=== PATIENT | male | born 1930 | race Caucasian/White ===

== ENCOUNTER 2017-07-27 13:55 | Inpatient (IN) | payer OTHER ==
[~2017-07-27] VITALS: Ht 185.4 cm; Wt 113.2 kg
[~2017-07-27 13:55] MED LIST: ACET325 PO; ACET650SUP PR; ALBU.083IS IH; ALBU3IS INH; ALBU90OI INH; AMLO10 PO; AMLO5 PO; AZIT250 PO; Ativan0.5 MG; CEFTRIAXONE IV; CEFUROXIME PO; CEPH500 PO; CETI5 PO; CITA10S PO; CITA20 PO; CLON1 PO; Celexa40 MG PO; DICL75ER PO; DONE10 PO; ENOX40I SUBQ; FERR325 PO; FURO20 PO; FURO40 PO; Furosemide40 MG PO; GLYB2.5 PO; HYDACE5 PO; Keflex500 MG PO; LOPE2C PO; LORA1 PO; LOSA50 PO; MEMA5TAB PO; METO25ER PO; METO50 PO; METPRE4DP PO; MULVITMIND PO; Micro-K10 MEQ PO; NAMENDA XR28 MG PO; NYST100P TOP; Norco 5-325 Ta1 EACH PO; OLAN2.5 PO; OXYC5 PO; PANT40 PO; PIOG30 PO; POLY17UD PO; POTCHL10ER PO; POTCHL20ER PO; Prevalite Pac4 G/PKT PO; QUET25 PO; Questran4 GM; Questran4 GM PO; RIFA300 PO; SULTRIDS PO; TELM40 PO; TRIA80TC TOP; VANCOMYCIN IV; WARF5 PO; XARELTO20 MG PO; ZOLP10 PO; [UNRECOGNIZED DRUG - OTHER]
[2017-07-27] MEDS ORDERED: LORA1 PO (14:25)
[2017-07-27] MEDS ORDERED: Ferrous Sulfat325 MG PO (14:27)
[2017-07-27] MEDS ORDERED: VITAMIN B122500 MC1 PO (14:29)
[2017-07-27 15:27] LABS: BASOPHILS ABSOLUTE AUTO 0.03 K/mm3 (0.00-0.23); BASOPHILS PERCENT AUTO 1 % (0-2); EOSINOPHILS ABSOLUTE AUTO 0.22 K/mm3 (0.00-0.68); EOSINOPHILS PERCENT AUTO 4 % (0-6); Hematocrit 40.3 % (37.0-53.0); Hemoglobin 12.8 g/dL (13.5-17.5); IMMATURE GRAN ABSOLUTE AUTO 0.01 K/mm3 (0.00-0.10); IMMATURE GRAN PERCENT AUTO 0 % (0-1); LYMPHOCYTES ABSOLUTE AUTO 0.75 K/mm3 (0.84-5.20); LYMPHOCYTES PERCENT AUTO 13 % (21-46); MONOCYTES ABSOLUTE AUTO 0.53 K/mm3 (0.16-1.47); MONOCYTES PERCENT AUTO 9 % (4-13); Mean Corpuscular HGB 29.1 pg (26.0-34.0); Mean Corpuscular HGB Conc 31.8 g/dL (31.5-36.5); Mean Corpuscular Volume 92 fL (80-100); NEUTROPHILS ABSOLUTE AUTO 4.37 K/mm3 (1.96-9.15); NEUTROPHILS PERCENT AUTO 74 % (41-73); Platelet Count 181 K/mm3 (150-400); RDW Coefficient Variation 14.5 % (11.7-14.2); RDW Standard Deviation 48.8 fL (35.1-46.3); White Blood Cell Count 5.91 K/mm3 (4.00-11.30)
[2017-07-27 15:35] LABS: Source, Urine Catheter
[2017-07-27 15:49] LABS: Albumin, Blood 3.1 g/dL (3.4-5.0); Albumin/Globulin Ratio 0.9 (0.8-1.8); Bilirubin, Total 0.5 mg/dL (0.1-1.0); Bun/Creatinine Ratio 15.9 (12.0-20.0); Calcium, Blood 9.4 mg/dL (8.5-10.1); Creatinine, Blood 1.45 mg/dL (0.60-1.20); Globulin, Blood 3.3 g/dL (2.2-4.0); Potassium, Blood 4.4 mmol/L (3.5-5.5); Total Protein, Blood 6.4 g/dL (6.4-8.2)
[2017-07-27 15:51] LABS: Appearance, Urine Clear (Clear); Bilirubin, Urine Neg (Neg); Blood, Urine Neg (Neg); Color, Urine Yellow (P-Yellow); Glucose Qualitative, Urine Neg (Neg); Ketones, Urine Neg (Neg); Leukocyte Esterase, Urine 1+ (Neg); Nitrite, Urine Neg (Neg); Protein, Urine Neg (Neg); Urobilinogen, Urine NORM (Normal)
[2017-07-27 16:08] LABS: Bacteria Rare /hpf; Red Blood Cells, Urine 0-2 /hpf (0-2); Squamous Epithelial Cells Rare /hpf (Few)
[2017-07-28 05:15] LABS: BASOPHILS ABSOLUTE AUTO 0.04 K/mm3 (0.00-0.23); BASOPHILS PERCENT AUTO 1 % (0-2); EOSINOPHILS ABSOLUTE AUTO 0.19 K/mm3 (0.00-0.68); EOSINOPHILS PERCENT AUTO 4 % (0-6); Hematocrit 38.8 % (37.0-53.0); Hemoglobin 12.3 g/dL (13.5-17.5); IMMATURE GRAN ABSOLUTE AUTO 0.01 K/mm3 (0.00-0.10); IMMATURE GRAN PERCENT AUTO 0 % (0-1); LYMPHOCYTES ABSOLUTE AUTO 0.98 K/mm3 (0.84-5.20); LYMPHOCYTES PERCENT AUTO 22 % (21-46); MONOCYTES ABSOLUTE AUTO 0.47 K/mm3 (0.16-1.47); MONOCYTES PERCENT AUTO 11 % (4-13); Mean Corpuscular HGB 28.6 pg (26.0-34.0); Mean Corpuscular HGB Conc 31.7 g/dL (31.5-36.5); Mean Corpuscular Volume 90 fL (80-100); Mean Platelet Volume 10.6 fL (9.1-12.4); NEUTROPHILS ABSOLUTE AUTO 2.74 K/mm3 (1.96-9.15); NEUTROPHILS PERCENT AUTO 62 % (41-73); Platelet Count 164 K/mm3 (150-400); RDW Coefficient Variation 14.3 % (11.7-14.2); RDW Standard Deviation 47.2 fL (35.1-46.3); White Blood Cell Count 4.43 K/mm3 (4.00-11.30)
[2017-07-28 05:48] LABS: Albumin, Blood 2.9 g/dL (3.4-5.0); Albumin/Globulin Ratio 0.9 (0.8-1.8); Bilirubin, Total 0.4 mg/dL (0.1-1.0); Bun/Creatinine Ratio 17.3 (12.0-20.0); Calcium, Blood 9.3 mg/dL (8.5-10.1); Creatinine, Blood 1.39 mg/dL (0.60-1.20); Globulin, Blood 3.3 g/dL (2.2-4.0); Potassium, Blood 4.2 mmol/L (3.5-5.5); Total Protein, Blood 6.2 g/dL (6.4-8.2)
[2017-07-29] MEDS ORDERED: AZIT500 PO (11:41)
[2017-07-29] MEDS ORDERED: Prinivil10 MG PO (11:41)
== END 2017-07-29 13:24 | disposition home or self-care (01) | DRG 194 ==
LOC: ER 13:55 → MEDS 17:00 → ENPENDDIS 07-29 10:00 → MEDS 07-29 13:24
PROVIDERS: Internal Medicine
DX: J18.9 Pneumonia, unspecified organism (principal); E87.0 Hyperosmolality and hypernatremia; I13.0 Hypertensive heart and chronic kidney disease with heart failure and stage 1 through stage 4 chronic kidney disease, or unspecified chronic kidney disease; F03.90 Unspecified dementia, unspecified severity, without behavioral disturbance, psychotic disturbance, mood disturbance, and anxiety; E11.22 Type 2 diabetes mellitus with diabetic chronic kidney disease; N18.3 Chronic kidney disease, stage 3 (moderate); I50.9 Heart failure, unspecified; E66.9 Obesity, unspecified; Z66 Do not resuscitate; Z68.34 Body mass index [BMI] 34.0-34.9, adult; Z85.46 Personal history of malignant neoplasm of prostate; Z79.84 Long term (current) use of oral hypoglycemic drugs; Z87.891 Personal history of nicotine dependence; Z79.891 Long term (current) use of opiate analgesic; Z79.899 Other long term (current) drug therapy
CPT/HCPCS: 36415; 71046; 80053; 81001; 83605; 83880; 84145; 85025; 87086; 93005; 93010; 93306; 96365; 96375; 99285; J0456; J0696; J1650; J7050

== ENCOUNTER 2017-11-18 18:11 | Emergency (ER) | payer OTHER ==
[~2017-11-18] VITALS: Ht 185.4 cm; Wt 113.4 kg
[~2017-11-18 18:11] MED LIST changes: +AZIT500 PO; +Ferrous Sulfat325 MG PO; +Prinivil10 MG PO; +VITAMIN B122500 MC1 PO
[2017-11-18] MEDS ORDERED: PIOG30 PO (18:40)
[2017-11-18 18:52] LABS: BASOPHILS ABSOLUTE AUTO 0.03 K/mm3 (0.00-0.23); BASOPHILS PERCENT AUTO 0 % (0-2); EOSINOPHILS ABSOLUTE AUTO 0.36 K/mm3 (0.00-0.68); EOSINOPHILS PERCENT AUTO 4 % (0-6); Hematocrit 36.7 % (37.0-53.0); Hemoglobin 11.6 g/dL (13.5-17.5); IMMATURE GRAN ABSOLUTE AUTO 0.02 K/mm3 (0.00-0.10); IMMATURE GRAN PERCENT AUTO 0 % (0-1); LYMPHOCYTES ABSOLUTE AUTO 0.83 K/mm3 (0.84-5.20); LYMPHOCYTES PERCENT AUTO 9 % (21-46); MONOCYTES ABSOLUTE AUTO 0.68 K/mm3 (0.16-1.47); MONOCYTES PERCENT AUTO 8 % (4-13); Mean Corpuscular HGB 28.9 pg (26.0-34.0); Mean Corpuscular HGB Conc 31.6 g/dL (31.5-36.5); Mean Corpuscular Volume 91 fL (80-100); Mean Platelet Volume 10.6 fL (9.1-12.4); NEUTROPHILS ABSOLUTE AUTO 6.98 K/mm3 (1.96-9.15); NEUTROPHILS PERCENT AUTO 79 % (41-73); Platelet Count 204 K/mm3 (150-400); RDW Coefficient Variation 14.9 % (11.7-14.2); RDW Standard Deviation 50.1 fL (35.1-46.3); Red Blood Cell Count 4.02 M/mm3 (4.30-5.90)
[2017-11-18 19:13] LABS: Alanine Aminotransfer (ALT/SGP 10 U/L (12-78); Albumin, Blood 2.8 g/dL (3.4-5.0); Albumin/Globulin Ratio 0.7 (0.8-1.8); Alk Phos 68 U/L (50-136); Anion Gap 7 mmol/L (6-16); Aspartate Aminotrans (AST/SGOT 12 U/L (12-37); Bilirubin, Total 0.5 mg/dL (0.1-1.0); Blood Urea Nitrogen 37 mg/dL (8-24); Bun/Creatinine Ratio 24.8 (12.0-20.0); CO2, Blood 25 mmol/L (21-32); Calcium, Blood 9.2 mg/dL (8.5-10.1); Chloride, Blood 108 mmol/L (98-108); Creatinine, Blood 1.49 mg/dL (0.60-1.20); Globulin, Blood 4.2 g/dL (2.2-4.0); Glomerular Filtration Rate 48 (60-); Glucose, Blood 124 mg/dL (70-99); Potassium, Blood 4.4 mmol/L (3.5-5.5); Sodium, Blood 140 mmol/L (136-145); Troponin I <0.015 ng/mL (0.000-0.040)
[2017-11-18 20:02] LABS: Source, Urine Clean Catch
[2017-11-18 20:15] LABS: Bilirubin, Urine Neg (Neg); Blood, Urine Neg (Neg); Glucose Qualitative, Urine Neg (Neg); Ketones, Urine 1+ (Neg); Leukocyte Esterase, Urine 1+ (Neg); Nitrite, Urine Neg (Neg); Protein, Urine 1+ (Neg); Specific Gravity, Urine 1.015 (1.003-1.022); Urobilinogen, Urine NORM (Normal)
[2017-11-18 20:27] LABS: Appearance, Urine Clear (Clear); Color, Urine Yellow (P-Yellow)
[2017-11-18 20:28] LABS: Amorphous Light (0-Heavy); Bacteria Rare /hpf; Red Blood Cells, Urine 0-2 /hpf (0-2); Squamous Epithelial Cells Rare /hpf (Few)
[2017-11-18] MEDS ORDERED: LEVO750 PO (20:35)
== END 2017-11-18 20:53 | disposition home or self-care (01) ==
LOC: ER 18:11
PROVIDERS: Internal Medicine
DX: J18.9 Pneumonia, unspecified organism (principal); Z88.5 Allergy status to narcotic agent; Z79.899 Other long term (current) drug therapy; E11.9 Type 2 diabetes mellitus without complications; I10 Essential (primary) hypertension; Z87.891 Personal history of nicotine dependence; Z85.46 Personal history of malignant neoplasm of prostate
CPT/HCPCS: 36415; 51701; 71046; 73502; 80053; 81001; 84484; 85025; 87086; 90471; 90714; 93005; 93010; 94640; 99284-25

== ENCOUNTER 2018-03-08 20:17 | Emergency (ER) | payer OTHER ==
[~2018-03-08] VITALS: Ht 180.3 cm; Wt 99.8 kg
[~2018-03-08 20:17] MED LIST changes: +LEVO750 PO
== END 2018-03-08 21:49 | disposition home or self-care (01) ==
LOC: ER 20:17
DX: M25.552 Pain in left hip (principal); W17.89XA Other fall from one level to another, initial encounter; Z88.5 Allergy status to narcotic agent; Z79.899 Other long term (current) drug therapy; I13.0 Hypertensive heart and chronic kidney disease with heart failure and stage 1 through stage 4 chronic kidney disease, or unspecified chronic kidney disease; I50.9 Heart failure, unspecified; N18.9 Chronic kidney disease, unspecified; E11.22 Type 2 diabetes mellitus with diabetic chronic kidney disease; Z87.891 Personal history of nicotine dependence; Z85.46 Personal history of malignant neoplasm of prostate
CPT/HCPCS: 73502; 99283-25

== ENCOUNTER 2018-05-05 17:52 | Inpatient (IN) | payer OTHER ==
[~2018-05-05] VITALS: Ht 188 cm; Wt 115.7 kg
[2018-05-05 18:17] LABS: Hematocrit 41.8 % (37.0-53.0); Hemoglobin 13.1 g/dL (13.5-17.5); Mean Corpuscular HGB 28.5 pg (26.0-34.0); Mean Corpuscular HGB Conc 31.3 g/dL (31.5-36.5); Mean Corpuscular Volume 91 fL (80-100); Mean Platelet Volume 12.3 fL (9.1-12.4); Platelet Count 150 K/mm3 (150-400); RDW Coefficient Variation 14.7 % (11.7-14.2); RDW Standard Deviation 49.3 fL (35.1-46.3); White Blood Cell Count 11.29 K/mm3 (4.00-11.30)
[2018-05-05] MEDS ORDERED: ASPI325EC PO (18:17)
[2018-05-05 18:22] LABS: Bicarbonate Venous 20.8 mmol/L (24.0-30.0); PCO2 Venous 45.2 mmHg (38-42); PO2 Venous 53.5 mmHg (38-42)
[2018-05-05 18:34] LABS: Alanine Aminotransfer (ALT/SGP 19 U/L (12-78); Albumin, Blood 2.5 g/dL (3.4-5.0); Albumin/Globulin Ratio 0.6 (0.8-1.8); Alk Phos 106 U/L (50-136); Anion Gap 8 mmol/L (6-16); Aspartate Aminotrans (AST/SGOT 32 U/L (12-37); Bilirubin, Total 0.2 mg/dL (0.1-1.0); Blood Urea Nitrogen 43 mg/dL (8-24); Bun/Creatinine Ratio 31.2 (12.0-20.0); CO2, Blood 23 mmol/L (21-32); Calcium, Blood 9.2 mg/dL (8.5-10.1); Chloride, Blood 106 mmol/L (98-108); Creatinine, Blood 1.38 mg/dL (0.60-1.20); Globulin, Blood 4.5 g/dL (2.2-4.0); Glomerular Filtration Rate 52 (60-); Glucose, Blood 221 mg/dL (70-99); Sodium, Blood 137 mmol/L (136-145); Troponin I <0.015 ng/mL (0.000-0.040)
[2018-05-05 18:50] LABS: BAND PERCENT MAN 11 % (0-8); BASOPHILS PERCENT MAN 0 % (0-2); EOSINOPHILS PERCENT MAN 0 % (0-6); LYMPHOCYTES ABSOLUTE MAN 0.79 K/mm3 (0.84-5.20); LYMPHOCYTES PERCENT MAN 7 % (21-46); MONOCYTES ABSOLUTE MAN 0.45 K/mm3 (0.16-1.47); MONOCYTES PERCENT MAN 4 % (4-13); NEUTROPHILS ABSOLUTE MAN 10.04 K/mm3 (1.96-9.15); SEG NEUTROPHILS PERCENT MAN 78 % (41-73); TOTAL CELLS COUNTED 100
[2018-05-05 19:11] LABS: Influenza A Positive (NEGATIVE); Influenza B Negative (NEGATIVE)
--- NOTE | 2018-05-05 21:47 | NUR ---
PCU ADMIT PT BROUGHT TO PCU RM 05 FROM THE ER BY YOUNG @ APPROX 2120. PT A&O TO SELF AND FAMILY ONLY W/ HX ALZHEIMERS DEMENTIA. PT ORIENTED TO LOCATION, TIME, AND EVENT BY THIS NURSE. PT LUNG SOUNDS COARSE T/O. SPO2 > 90% ON BIPAP 01/17, FIO2 35%. ALLEN CATH DRAINING CLEAR YELLOW URINE. PT STATING "I NEED TO PEE. I DON'T WANT TO WET THE BED." PT REMINDED OF ALLEN CATH. PT BED/WHEELCHAIR BOUND W/ USE OF LIFT FOR TRANSER AT [facility]. +2 EDEMA TO BLE. PT IN BED W/ BLE ELEVATED ON PILLOW. BED ALARM ON. WILL CONTINUE TO MONITOR AND PROVIDE CARE.
[2018-05-05] MEDS ORDERED: Milk Of Ma400 MG/5 M PO (22:14)
[2018-05-05] MEDS ORDERED: ACET325 PO (22:16)
[2018-05-05] MEDS ORDERED: PROM25 PO (22:17)
[2018-05-06 03:27] LABS: BASOPHILS ABSOLUTE AUTO 0.02 K/mm3 (0.00-0.23); BASOPHILS PERCENT AUTO 0 % (0-2); Hematocrit 36.7 % (37.0-53.0); Hemoglobin 11.3 g/dL (13.5-17.5); LYMPHOCYTES ABSOLUTE AUTO 0.49 K/mm3 (0.84-5.20); LYMPHOCYTES PERCENT AUTO 6 % (21-46); MONOCYTES PERCENT AUTO 5 % (4-13); Mean Corpuscular HGB Conc 30.8 g/dL (31.5-36.5); Mean Corpuscular Volume 91 fL (80-100); Mean Platelet Volume 12.2 fL (9.1-12.4); Platelet Count 117 K/mm3 (150-400); RDW Coefficient Variation 14.6 % (11.7-14.2); RDW Standard Deviation 49.2 fL (35.1-46.3); Red Blood Cell Count 4.04 M/mm3 (4.30-5.90); White Blood Cell Count 8.34 K/mm3 (4.00-11.30)
[2018-05-06 03:28] LABS: EOSINOPHILS ABSOLUTE AUTO 0.01 K/mm3 (0.00-0.68); EOSINOPHILS PERCENT AUTO 0 % (0-6); IMMATURE GRAN ABSOLUTE AUTO 0.04 K/mm3 (0.00-0.10); IMMATURE GRAN PERCENT AUTO 1 % (0-1); NEUTROPHILS ABSOLUTE AUTO 7.38 K/mm3 (1.96-9.15); NEUTROPHILS PERCENT AUTO 89 % (41-73)
[2018-05-06 03:45] LABS: Albumin, Blood 2.1 g/dL (3.4-5.0); Albumin/Globulin Ratio 0.6 (0.8-1.8); Bilirubin, Total 0.3 mg/dL (0.1-1.0); Bun/Creatinine Ratio 32.8 (12.0-20.0); Calcium, Blood 8.7 mg/dL (8.5-10.1); Creatinine, Blood 1.28 mg/dL (0.60-1.20); Globulin, Blood 3.6 g/dL (2.2-4.0); Potassium, Blood 3.9 mmol/L (3.5-5.5); Total Protein, Blood 5.7 g/dL (6.4-8.2)
--- NOTE | 2018-05-06 05:40 | NUR ---
SHIFT SUMMARY PT ALERT, ORIENTED TO SELF, FAMILY, AND LOCATION. MONITOR SHOWS SB/NSR, HR 35-60. HR 30'S DURING SLEEP W/ HR INCREASE TO 50'S UPON WAKING PT. PT TOLERATING BIPAP 12/6, FIO2 35% T/O SHIFT. PT NPO EXCEPT FOR MEDS AND ICE CHIPS, ST TO EVAL PT. ALLEN CATH DRAINING CLEAR YELLOW URINE. +2 BLE, BLE ELEVATED ON PILLOW. PT REQUIRING Q2H REPOSITIONING BY 2 STAFF MEMBERS. PT IN BED W/ CALL LIGHT IN REACH. WILL CONTINUE TO MONITOR AND PROVIDE CARE UNTIL REPORT OFF TO DAY SHIFT RN.
--- NOTE | 2018-05-06 11:35 | NUR ---
SHIFT NOTE ASSUMED CARE OF PT. AT 0700. PT ON BIPAP 12/6 AT 35% MAINTAINING O2 SAT IN 90S. PT HR REMAINED IN 40'S AND 50'S, ASYMPTOMATIC. DR. NAVA IN THIS AM TO SEE PT. TYLENOL ORDER CHANGE FROM SCHEDULED TO PRN FOR PAIN, LASIX ORDERED. D/C ALLEN CATH VIA VERBAL ORDER. PT ORIENTED TO PERSON, DISORIENTED TO PLACE, TIME, EVENT BUT REORIENTS WELL. DENIES ANY PAIN, IS CALM AND COOPERATIVE BUT FORGETFUL D/T BASELINE DEMENTIA. SKIN IS COOL AND CLAMMY AND PT C/O "I'M COLD". HAVE BEEN GIVING PT WARM BLANKETS WHICH IS APPRECIATED. NO SIGNS OF DVT ASSESSED, PT DENIES PAIN IN CALF AND CHEST. SEE SHIFT ASSESSMENT FOR DETAILED ASSESSMENT. PT TOLERATING BIPAP WELL. AT APPROX 1100 O2 SATURATION DECREASED TO MID 80'S AND BIPAP FIO2 INCREASED TO 45%. PT TOLERATING NEW FIO2 WELL. DAUGHTER AT BEDSIDE WITH PALLIATIVE CARE. DISCUSSING TRANSITION TO HOME WITH HOSPICE CARE. PLAN TO REMOVE ALLEN AND REPLACE WITH CONDOM CATH D/T COMFORT.
--- NOTE | 2018-05-06 12:05 | NUR ---
SPOKE WITH DR. NAVA CONFIRMING MRSA SAMPLE W/ ABX TX. PER DR NAVA, UBTAIN NASAL MRSA SWAB DISPITE PT RECIEVING ABX AND INF CONT RECOMMENDATION TO HOLD SWAB UNTIL PT OFF ABX FOR 48 HRS.
--- NOTE | 2018-05-06 12:25 | NUR ---
Initial Visit: Consult for end of life/comfort care Pt is laying in bed with bipap. Daughter, Monse, is present. Reviewed current illness. Pt denies pain at this time, does not appear to be in any distress. Pt has past history of hypertension, DM2, CHF, dementia with behavioural elements, L BKA, R partial hip replacement. Spoke to Monse. She states that [facility] with [facility]. She has already discussed hospice with Jeanie. Jeanie tells her that the patient is showing more difficulty swallowing. His appetite has been poor. Pt has lost the ability to walk - after hip fracture and repair - he has had to remain bedbound a large percentage of time - and will get into a wheelchair with a les lift. Monse has POA and makes this decision with the help of her little sister, who is also living in the area and visits the patient on a regular basis. Monse has left the deciding of the hospice agency to Jeanie, and asks that all customer care professional questions for arrangements to hospice be directed to her also. Will remain available.
--- NOTE | 2018-05-06 17:42 | NUR ---
SHIFT SUMMARY NO ACUTE CHANGES THIS SHIFT. PT TOLERATES BIPAP WELL AT 12/6 AND 45% FIO2 MAINTINING O2 IN 90-95'S. DIET CHANGE FROM NPO TO PUREE PER ST THIS AFTERNOON. MUST HAVE SUPERVISION WITH ALL FEEDINGS. IV PATENT AND FLUSHING WELL WITH KVO AT 75 ML/HR OF NS. SCD APPLIED TO BLE. PT DENIES CALF PAIN. NO REDNESS OR SWELLING NOTED BY THIS RN. PT REMAINS BRADYCARDIC IN THE 50'S AND IS ASYMPTOMATIC. URINE OUTPUT 800 ML POST IV LASIX, PT REMAINS COURSE THROUGHOUT LUNGS. PT ALERT AND ORIENTED TO SELF AND PLACE, REDIRECTABLE AND REORIENTS WELL. PT DENIES PAIN AT THIS TIME. PT IS PLEASANT AND CALM. PLAN PER PALLIATIVE CARE IS HOME WITH HOSPICE POSSIBLY 05/07. THIS RN WILL CONTINUE TO MONITOR O2 LEVELS AND BIPAP TOLERANCE.
--- NOTE | 2018-05-06 19:13 | NUR ---
TAKEN OFF OF BIPAP FOR SNACK. TOLERATED, WELL.
[2018-05-07 04:02] LABS: BASOPHILS ABSOLUTE AUTO 0.03 K/mm3 (0.00-0.23); BASOPHILS PERCENT AUTO 1 % (0-2); EOSINOPHILS ABSOLUTE AUTO 0.05 K/mm3 (0.00-0.68); EOSINOPHILS PERCENT AUTO 1 % (0-6); Hematocrit 35.6 % (37.0-53.0); Hemoglobin 11.1 g/dL (13.5-17.5); IMMATURE GRAN ABSOLUTE AUTO 0.02 K/mm3 (0.00-0.10); IMMATURE GRAN PERCENT AUTO 0 % (0-1); LYMPHOCYTES ABSOLUTE AUTO 0.59 K/mm3 (0.84-5.20); LYMPHOCYTES PERCENT AUTO 12 % (21-46); MONOCYTES ABSOLUTE AUTO 0.27 K/mm3 (0.16-1.47); MONOCYTES PERCENT AUTO 5 % (4-13); Mean Corpuscular HGB 28.2 pg (26.0-34.0); Mean Corpuscular HGB Conc 31.2 g/dL (31.5-36.5); Mean Corpuscular Volume 90 fL (80-100); Mean Platelet Volume 12.8 fL (9.1-12.4); NEUTROPHILS ABSOLUTE AUTO 4.02 K/mm3 (1.96-9.15); NEUTROPHILS PERCENT AUTO 81 % (41-73); Platelet Count 116 K/mm3 (150-400); RDW Coefficient Variation 14.6 % (11.7-14.2); Red Blood Cell Count 3.94 M/mm3 (4.30-5.90); White Blood Cell Count 4.98 K/mm3 (4.00-11.30)
[2018-05-07 04:17] LABS: Anion Gap 8 mmol/L (6-16); Blood Urea Nitrogen 30 mg/dL (8-24); Bun/Creatinine Ratio 27.5 (12.0-20.0); CO2, Blood 25 mmol/L (21-32); Calcium, Blood 8.7 mg/dL (8.5-10.1); Chloride, Blood 109 mmol/L (98-108); Creatinine, Blood 1.09 mg/dL (0.60-1.20); Glomerular Filtration Rate >60 (60-); Glucose, Blood 94 mg/dL (70-99); Potassium, Blood 3.9 mmol/L (3.5-5.5); Sodium, Blood 142 mmol/L (136-145)
--- NOTE | 2018-05-07 05:06 | NUR ---
patient resting quietly, bp still over 180, prn hydralazine given, call light in reach, room tidied up will continue to monitor.
--- NOTE | 2018-05-07 05:18 | NUR ---
SHIFT SUMMARY PT ALERT, ORIENTED TO SELF, FAMILY, AND LOCATION. PT RECQUIRING REDIRECTION T/O SHIFT. PT FREQUENTLY CALLING OUT FROM ROOM "SOMEBODY HELP ME!" PT CAREGIVER CAROLA DE LEON STATES PT DOES THIS MORE SO AT NIGHT. PT ASKING "HELP ME POOP" AND "I HAVE TO POOP REAL BAD" T/O SHIFT. PT ABLE TO HAVE 2 SMEAR SIZED BM'S THIS SHIFT. PT LUNG SOUNDS COARSE T/O W/ EXPIRATORY WHEEZE NOTED IN RUL. PT TOLERATING BIPAP @ 12/6, FIO2 45%. MONITOR SHOWS JUNCTIONAL RHYTHM, HR 50'S. PT IN BED W/ CALL LIGHT IN REACH. WILL CONTINUE TO MONITOR AND PROVIDE CARE UNTIL REPORT OFF TO DAY SHIFT RN.
--- NOTE | 2018-05-07 06:28 | NUR ---
PT GONE TO IMAGING BY BED FOR 2V CHEST X-RAY AT THIS TIME. PT SWITCHED FROM BIPAP TO 3L NC.
--- NOTE | 2018-05-07 06:49 | NUR ---
PT BACK IN ROOM AT THIS TIME.
--- NOTE | 2018-05-07 08:00 | NUR ---
pt laying in bed, calls for help freq. a/o to self. makes his needs known. follows commands, lungs are course t/o, resp even with some mild laboring, no cough noted, hrr, running a junctional rhythm per monitor, see strip, +1 edema noted to b/l lower ext, ppp+1, cap refill <3 sec, vs stable, afebrile, iv site is clear and patent, to left ac, btx4, abd flat soft nontender, flores cath in place draining clear yellow urine, skin frail with some bruising but intact, moves upper ext well, turn q2, call light in reach.
[2018-05-07] MEDS ORDERED: LORA.5 PO (09:58)
--- NOTE | 2018-05-07 11:45 | NUR ---
pt has been discharged back to foster home on hospice, this has been set up, he left via gurney with emt in attendence. iv was removed intact, flores will stay per Dr. Rendon if foster care would like that. belongings went with him.
== END 2018-05-07 11:45 | disposition hospice, home (50) | DRG 871 ==
LOC: ER 17:52 → PCU 20:07
PROVIDERS: Emergency Medicine; Internal Medicine; Physician Assistant; ADMIT Internal Medicine
PROC: 5A09457 Assistance with Respiratory Ventilation, 24-96 Consecutive Hours, Continuous Positive Airway Pressure (ICD-10-PCS; principal; 2018-05-05)
DX: A41.9 Sepsis, unspecified organism (principal); J10.00 Influenza due to other identified influenza virus with unspecified type of pneumonia; J96.01 Acute respiratory failure with hypoxia; I13.0 Hypertensive heart and chronic kidney disease with heart failure and stage 1 through stage 4 chronic kidney disease, or unspecified chronic kidney disease; I50.32 Chronic diastolic (congestive) heart failure; F02.81 Dementia in other diseases classified elsewhere, unspecified severity, with behavioral disturbance; Z51.5 Encounter for palliative care; N18.3 Chronic kidney disease, stage 3 (moderate); E11.22 Type 2 diabetes mellitus with diabetic chronic kidney disease; D63.1 Anemia in chronic kidney disease; Z85.46 Personal history of malignant neoplasm of prostate; Z74.01 Bed confinement status; Z99.3 Dependence on wheelchair; G30.9 Alzheimer's disease, unspecified; Z89.512 Acquired absence of left leg below knee; Z96.641 Presence of right artificial hip joint; Z87.891 Personal history of nicotine dependence; Z66 Do not resuscitate
CPT/HCPCS: 36415; 51702; 71045; 71046; 80048; 80053; 82803; 82947; 83605; 83880; 84145; 84484; 85025; 87804; 92610; 93005; 93010; 94660; 94762; 96361-59; 96365-59; 96375-59; 99285-25; J0696; J1644; J1815; J1940; J7030; J7120